=== PATIENT | male | born 1970 | race Caucasian/White ===

== ENCOUNTER 2020-05-08 11:49 | Emergency (ER) | payer SELFPAY ==
[~2020-05-08] VITALS: Ht 172.7 cm; Wt 77.1 kg
[2020-05-08 11:54] VITALS: BP 142/90
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
--- NOTE | 2020-05-08 12:24 | NUR ---
DR STEINBERG EVALUATING PT AT BEDSIDE
[2020-05-08 12:54] VITALS: BP 142/90
== END 2020-05-08 12:53 | disposition home or self-care (01) ==
LOC: MED 11:49
DX: R21 Rash and other nonspecific skin eruption (principal); R60.0 Localized edema; I10 Essential (primary) hypertension; F17.210 Nicotine dependence, cigarettes, uncomplicated
CPT/HCPCS: 99283